=== PATIENT | male | born 1975 | race Hispanic/Latino ===

== ENCOUNTER 2024-07-26 22:51 | Emergency (ER) | payer SELFPAY ==
[~2024-07-26] VITALS: Ht 182.9 cm; Wt 99.8 kg
[2024-07-26 23:24] LABS: APPEARANCE,URINE CLEAR (CLEAR); BILIRUBIN,URINE NEGATIVE (NEGATIVE); COLOR,URINE YELLOW (YELLOW); GLUCOSE, URINE (UA) NEGATIVE (NEGATIVE); KETONES,URINE 5 mg/dL (NEGATIVE); LEUKOCYTE ESTERASE ,URINE NEGATIVE Leu/uL (NEGATIVE); NITRATE,URINE NEGATIVE (NEGATIVE); OCCULT BLOOD,URINE LARGE (NEGATIVE); PH,URINE 5.5 (5.0-8.0); PROTEIN,URINE 20 mg/dL (NEGATIVE); UROBILINOGEN,URINE 0.2 mg/dL (0.2-1.0)
[2024-07-26 23:30] LABS: ADD UA MICROSCOPIC YES
--- NOTE | 2024-07-26 23:32 | ERN ---
ED Note History of Present Illness Stated Complaint: C/O, ABD PAIN RADIATING TO LOWER BACK ONSET TUESDAY Chief Complaint: Abdominal Pain Time Seen by MD: 22:54 Time Seen by Midlevel: 22:54 Dictation: The patient is a 48-year-old male with a history of appendicitis who presents to the emergency department with complaints of left upper abdominal pain associated with nausea nonbloody vomiting onset Tuesday. Patient reports some constipation. Last bowel movement was on Tuesday. Denies any diarrhea, fevers. Reports pain radiates to the back. Patient also reports a pain radiating to testicles. Denies any swelling,discharge hematuria or urinary discomfort. Allergies: Coded Allergies: No Known Allergies (Unverified Allergy, Unknown, 07/26/24) Home Meds Active Scripts Lactulose (Lactulose) 10 Gram/15 Ml Solution, 30 ML PO DAILY for constipation, #900 ML 0 Refills Prov:ANDRES UNDERWOOD [facility] 07/27/24 Levofloxacin (Levaquin 750Mg Tabs) 750 Mg Tablet, 750 MG PO DAILY for 7 Days, #7 TAB 0 Refills Prov:ANDRES UNDERWOOD [facility] 07/27/24 Metronidazole (Metronidazole) 500 Mg Tablet, 1 TAB PO TID for 7 Days, #30 TAB 0 Refills Prov:ANDRES UNDERWOOD [facility] 07/27/24 Tamsulosin HCl (Flomax) 0.4 Mg Cap.er.24h, 0.4 MG PO DAILY, #30 CAPSULE. Prov:ANDRES UNDERWOOD [facility] 07/27/24 Past Medical History Past Medical History: No Pertinent History Surgical History: Appendectomy RN Note Reviewed/Agreed w/PFSH: Yes Review of System Dictation Constitutional: Negative for fever,chills, and weight loss Eyes: Negative for injury, pain,redness, and discharge ENT: Negative for injury,pain or swelling Cardiovascular: Negative for chest pain, palpitations, and edema Respiratory: Negative for shortness of breath, cough, and wheezing, Abdomen/GI: Negative for , diarrhea, positive for abdominal pain, nausea, vomiting, constipation Back: Negative for injury and pain : Negative for injury, bleeding and discharge. Positive for testicular pain MS/Extremity: Negative for injury and deformity Skin: Negative for rash, and discoloration Neuro: Negative for headache, weakness, numbness, tingling, and seizure Psych: Negative for suicide ideation, homicidal ideation, and hallucinations Initial Vital Sign VS Vital Signs Date Time Temp Pulse Resp B/P (MAP) Pulse Ox O2 Delivery O2 Flow Rate FiO2 07/26/24 22:54 100.6 83 20 162/85 97 Room Air 07/26/24 23:33 0 21 Physical Exam Dictation Vital Signs reviewed General Appearance: Alert, oriented x 3, no acute distress, well developed, nourished. Head and Face: non-traumatic. Eyes: PERRL, pink conjunctivas, eyelid no trauma, anterior chamber with arcus senilis. Ears: Pinnas intact and no signs of trauma or erythema ear canals clear and no discharge TM no erythema Nose: No discharge, no bleeding. Oropharynx: Mouth normal, tongue pink. pharynx clear,no erythema, tonsils no exudates, no abscesses noted, mucous membrane moist Neck: Supple, non-tender, no thyromegaly, no masses, no JVD, no bruits Breast:Deferred Chest:No tenderness, no crepitus, no paradoxical movement, no retractions Lungs:Clear, well-ventilated, symmetric, no rales, no wheezing, no rhonchi, no stridor, good breath sounds bilaterally Heart: Regular rate, regular rhythm, no murmur, no gallops Vascular: no peripheral edema, Abdomen: Firm, positive bowel sounds, nondistended, no guarding, Tender to left upper quadrant, no rebound, no masses no hepatomegaly, no splenomegaly, no Vila's sign, no hernias. Rectal: Deferred Genital: Deferred. Refused assessment Neurological: Normal speech, motor function intact, sensory function intact Musculoskeletal: Neck nontender, full range of motion, back nontender, full range of motion, Extremities: nontender, full range of motion Skin: Color pink, dry, no turgor, no rash, no lacerations, no abrasions, no contusions. Lymphatic: Deferred Results (Laboratory/Radiology) Laboratory/Radiology Laboratory Tests Test 07/26/24 23:01 07/26/24 23:31 Urine Color YELLOW (YELLOW) Urine Appearance CLEAR (CLEAR) Urine pH 5.5 (5.0-8.0) Urine Specific [place] 1.027 (1.001-1.031) Urine Protein 20 mg/dL (NEGATIVE) H Urine Glucose (UA) NEGATIVE mg/dL (NEGATIVE) Urine Ketones 5 mg/dL (NEGATIVE) H Urine Occult Blood LARGE (NEGATIVE) H Urine Nitrate NEGATIVE (NEGATIVE) Urine Bilirubin NEGATIVE mg/dL (NEGATIVE) Urine Urobilinogen 0.2 mg/dL (0.2-1.0) Urine Leukocyte Esterase NEGATIVE Eveline/uL Urine RBC 11-25 /HPF (0-1) H Urine WBC 0-1 /HPF (0-1) Urine Squamous Epithelial Cells RARE /HPF (0-2) Urine Bacteria None /HPF (None Seen) White Blood Count 13.1 K/uL (4.8-10.8) H Red Blood Count 5.40 MIL/uL (4.50-6.20) Hemoglobin 15.8 g/dL (14.0-18.0) Hematocrit 46.8 % (42-54) Mean Corpuscular Volume 86.7 fL (79-99) Mean Corpuscular Hemoglobin 29.3 pg (27.0-33.0) Mean Corpuscular Hemoglobin Concent 33.8 g/dL (32.0-36.0) Red Cell Distribution Width 12.5 % (11.0-15.5) Platelet Count 235 K/uL (130-400) Mean Platelet Volume 10.8 fL (7.5-10.5) H Immature Granulocyte % (Auto) 0.3 % (0-1) Neutrophils (%) (Auto) 74.3 % (40.0-77.0) Lymphocytes (%) (Auto) 13.8 % (21.0-51.0) L Monocytes (%) (Auto) 10.6 % (3.0-13.0) Eosinophils (%) (Auto) 0.8 % (0.0-8.0) Basophils (%) (Auto) 0.2 % (0.0-5.0) Neutrophils # (Auto) 9.7 K/uL (1.8-7.7) H Lymphocytes # (Auto) 1.8 K/uL (1.0-4.8) Monocytes # (Auto) 1.4 K/uL (0.1-1.0) H Eosinophils # (Auto) 0.10 K/uL (0.00-0.70) Basophils # (Auto) 0.03 K/uL (0.00-0.20) Absolute Immature Granulocyte (auto 0.04 K/uL (0-1) Nucleated Red Blood Cells 0.0 % (0.0-0.19) Sodium Level 137 mmol/L (136-145) Potassium Level 4.2 mmol/L (3.5-5.1) Chloride Level 96 mmol/L (101-111) L Carbon Dioxide Level 32 mmol/L (21-32) Blood Urea Nitrogen 21 mg/dL (7-18) H Creatinine 1.8 mg/dL (0.5-1.3) H Glomerular Filtration Rate Calc 46 mL/min (>90) Random Glucose 110 mg/dL (70-105) H Total Calcium 9.6 mg/dL (8.5-10.1) Total Bilirubin 0.8 mg/dL (0.2-1.0) Direct Bilirubin 0.2 mg/dL (0.0-0.3) Aspartate Amino Transf (AST/SGOT) 55 U/L (10-37) H Alanine Aminotransferase (ALT/SGPT) 74 U/L (12-78) Alkaline Phosphatase 125 U/L (50-136) Total Protein 8.4 g/dL (6.0-8.3) H Albumin 3.9 g/dL (3.5-5.0) Lipase 23 U/L (16-77) REASON: ABD PAIN ORDERING PHYSICIAN: ANDRES UNDERWOOD [employer] OPERATOR PROCEDURE: ABD PEL WO - CT ABDOMEN/PELVIS W/O CONTRAST CT ABDOMEN/PELVIS W/O CONTRAST HISTORY: Left-sided abdominal pain COMPARISON: None TECHNIQUE: Multiple sequential axial images of the abdomen and pelvis were obtained from the dome of the diaphragm through symphysis pubis. Patient was not given contrast through intravenous route. Oral contrast was not given. FINDINGS: No pleural effusion is seen bilaterally. There are interstitial fibrosis. There is no evidence of parenchymal disease or pulmonary nodule of the visualized lower lungs. Degenerative changes of the thoracolumbar spine are present. The heart is not enlarged. Liver is enlarged with fatty changes measuring 18.4 cm. Gallbladder is contracted. The liver, spleen, adrenal glands and pancreas are unremarkable. No hydronephrosis is seen on the right. There is mild left hydronephrosis and left hydroureter with 2 mm and 3 mm renal stones in the left UV junction. Tiny left renal pelvic stones are also seen. Fecal material is seen in the colon. There are normal size retroperitoneal and mesenteric lymph nodes. No ascites is seen. Appendix is not well seen limiting evaluation. Pelvic sidewalls are symmetric bilaterally. Bladder is well distended without wall thickening. IMPRESSION: 1. There is mild left hydronephrosis and left hydroureter with 2 mm and 3 mm renal stones in the left UV junction. Tiny left renal pelvic stones are also seen. Labs Reviewed?: Yes ED Course ED Course Orders Procedure Category Date Status Time Urinalysis Profile LAB 07/26/24 Complete 23:10 Cbc With Differential LAB 07/26/24 Complete 23:16 0.9%Nacl 1000ml (Ns PHA 07/26/24 Complete 1000ml) 23:30 Morphine 4mg Syg PHA 07/26/24 Complete (Morphine 4mg Syg) 23:30 Ondansetron 4mg Inj PHA 07/26/24 Complete (Zofran 4mg Inj) 23:30 Pantoprazole 40mg Inj PHA 07/26/24 Complete (Protonix 40mg Inj 23:30 Lipase LAB 07/26/24 Complete 23:16 Basic Metabolic Panel LAB 07/26/24 Complete 23:16 Hepatic Function Panel LAB 07/26/24 Complete 23:16 Ct Abdomen/Pelvis W/O CT 07/27/24 Resulted Contrast 00:04 Levofloxacin 750 PHA 07/27/24 In Process Mg/D5w 150 Ml 01:30 Metronidazole PHA 07/27/24 In Process 500mg/100ml Bag 01:20 0.9%Nacl 1000ml (Ns PHA 07/27/24 Complete 1000ml) 01:30 Hydralazine 20mg Inj PHA 07/27/24 Complete (Apresoline 20mg In 01:30 *Nursing CPOE 07/27/24 Transmitted Communication: 01:20 Tamsulosin Hcl PHA 07/27/24 Complete (Flomax) 02:00 Current Medications Medications (Trade) Dose Ordered Sig/Lise Route PRN Reason Start Time Stop Time Status Last Admin Dose Admin Hydralazine HCl (APRESOLine 20MG INJ) 10 mg ONCE ONCE IV 07/27/24 01:30 07/27/24 01:31 DC Levofloxacin/ Dextrose 150 ml @ 100 mls/hr ONCE ONCE IV 07/27/24 01:30 07/27/24 02:59 Metronidazole/ Sodium Chloride 100 ml @ 100 mls/hr Q1H STAT IVPB 07/27/24 01:20 07/27/24 02:19 07/27/24 01:33 Morphine Sulfate (morPHINE 4MG SYG) 4 mg ONCE ONCE IVP 07/26/24 23:30 07/26/24 23:31 DC 07/27/24 00:36 Ondansetron HCl (zoFRAN 4MG INJ) 4 mg ONCE ONCE IVP 07/26/24 23:30 07/26/24 23:31 DC 07/26/24 23:53 Pantoprazole Sodium (PROTonix 40MG INJ) 40 mg ONCE ONCE IVP 07/26/24 23:30 07/26/24 23:31 DC 07/26/24 23:53 Sodium Chloride 1,000 ml @ 0 mls/hr ONCE ONCE IV 07/26/24 23:30 07/26/24 23:31 DC 07/26/24 23:54 Sodium Chloride 1,000 ml @ 0 mls/hr ONCE ONCE IV 07/27/24 01:30 07/27/24 01:31 DC 07/27/24 01:34 Tamsulosin HCl (FloMAX) 0.4 mg ONCE ONCE PO 07/27/24 02:00 07/27/24 02:01 DC Vital Signs Date Time Temp Pulse Resp B/P (MAP) Pulse Ox O2 Delivery O2 Flow Rate FiO2 07/26/24 23:33 99.0 79 18 146/75 97 Room Air* 0 21 07/26/24 22:54 100.6 83 20 162/85 97 Room Air Medical Decision Making MDM The patient is a 48-year-old male with a history of appendicitis who presents to the emergency department with complaints of left upper abdominal pain associated with nausea nonbloody vomiting onset Tuesday. Patient reports some constipation. Last bowel movement was on Tuesday. Denies any diarrhea, fevers. Reports pain radiates to the back. Patient also reports a pain radiating to testicles. Denies any swelling, discharge, hematuria or urinary discomfort. CBC showed mild leukocytosis, no anemia, chemistry showed hypochloremia, elevated BUN and creatinine, GFR of 46, negative lipase, mild elevated AST, urinalysis with large occult blood. CT abdomen and pelvis showed mild left hydronephrosis and left hydroureter with 2 mm and 3 mm renal stones in the left UV junction. Patient reported scrotal pain but refused assessment by myself or Dr. Nina Patient also refused ultrasound of scrotum. Risks and benefits discussed with the patient. Patient tolerated PO challenge with no vomiting. Agrees to be discharge and follow up with pcp. Differential diagnosis: Constipation, bowel obstruction, kidney stones, gastroenteritis, electrolyte imbalance, dehydration Need for hospitalization: Patient does not meet criteria for hospitalization. There are no social concerns with this patient. DX & DISP Disposition: Discharge Departure Impression: Primary Impression: Kidney stone on left side Additional Impressions: Hydronephrosis of left kidney, Gastroenteritis, Leukocytosis, AMBER (acute kidney injury) Condition: Stable Scripts Lactulose (Lactulose) 10 Gram/15 Ml Solution 30 ML PO DAILY for constipation, #900 ML 0 Refills Prov: [facility]ES [facility] 07/27/24 Levofloxacin (Levaquin 750Mg Tabs) 750 Mg Tablet 750 MG PO DAILY for 7 Days, #7 TAB 0 Refills Prov: ANDRES UNDERWOOD [facility] 07/27/24 Metronidazole (Metronidazole) 500 Mg Tablet 1 TAB PO TID for 7 Days, #30 TAB 0 Refills Prov: ANDRES UNDERWOOD [facility] 07/27/24 Tamsulosin HCl (Flomax) 0.4 Mg Cap.er.24h 0.4 MG PO DAILY, #30 CAPSULE. Prov: ANDRES UNDERWOOD [facility] 07/27/24 Additional Instructions: Please follow up with the primary doctor in 1-2 days. You have an acute kidney injury that needs to be evaluated to make sure it is improving. You also need to be referred for urologist for a kidney stones. Please continue medications as prescribed. If symptoms worsen please return to ER. FOLLOW-UP WITH PRIMARY CARE PROVIDER IN 1 TO 2 DAYS. TAKE MEDICATIONS DIRECTED HERE IN THE EMERGENCY ROOM. OKAY TO CONTINUE HOME MEDICATIONS UNLESS OTHERWISE DISCUSSED DURING YOUR VISIT IN THE EMERGENCY ROOM TODAY. RETURN TO YOUR NEAREST EMERGENCY ROOM IF SYMPTOMS WORSEN OR IF THERE IS NO IMPROVEMENT. CALL 911 IF YOU NEED IMMEDIATE ASSISTANCE. TAKE TYLENOL OR MOTRIN [id number] NEEDED AND IF NO CONTRAINDICATIONS ARE PRESENT. INCREASE ORAL HYDRATION. A WOUND CULTURE OR URINE CULTURE WAS ORDERED HERE IN THE EMERGENCY ROOM DEPARTMENT PLEASE FOLLOW-UP WITH PRIMARY CARE PROVIDER AND ADVISE THEM TO GET REPEAT PORTS FROM OUR FACILITY. IF YOU HAD ANY ERI WRAP/SPLINTS THAT WERE APPLIED HERE, PLEASE DO NOT REMOVE THEM UNTIL YOU SEE YOUR PRIMARY CARE OR SPECIALTY. Referrals: SELF,REFERRAL (PCP) GILSON SCHULTZ MD Time of Disposition: 02:09 I have examined patient, & reviewed all documents, & agreed W/ the Diagnosis, and Plan ANDRES UNDERWOOD [employer] OPERATOR Jul 26, 2024 23:32
[2024-07-26 23:33] VITALS: TEMP 98.9
[2024-07-26 23:36] LABS: MUCUS,URINE RARE LPF (None Seen); SQUAMOUS EPITHELIAL CELL,UR RARE /HPF (0-2); WBC,URINE 0-1 /HPF (0-1)
[2024-07-26 23:42] LABS: BASOPHILS # (AUTO) 0.03 K/uL (0.00-0.20); BASOPHILS % (AUTO) 0.2 % (0.0-5.0); EOSINOPHILS % (AUTO) 0.8 % (0.0-8.0); HEMATOCRIT 46.8 % (42-54); IMMATURE GRANULOCYTE ABSOLUTE 0.04 K/uL (0-1); LYMPHOCYTES # (AUTO) 1.8 K/uL (1.0-4.8); LYMPHOCYTES % (AUTO) 13.8 % (21.0-51.0); MEAN CORPUSCULAR HEMOGLOBIN 29.3 pg (27.0-33.0); MEAN CORPUSCULAR HGB CONC 33.8 g/dL (32.0-36.0); MEAN CORPUSCULAR VOLUME 86.7 fL (79-99); MONOCYTES # (AUTO) 1.4 K/uL (0.1-1.0); MONOCYTES % (AUTO) 10.6 % (3.0-13.0); NEUTROPHILS # (AUTO) 9.7 K/uL (1.8-7.7); NEUTROPHILS % (AUTO) 74.3 % (40.0-77.0); PLATELET COUNT (AUTO) 235 K/uL (130-400); RED CELL DISTRIBUTION WIDTH 12.5 % (11.0-15.5); WHITE BLOOD COUNT (AUTO) 13.1 K/uL (4.8-10.8)
[2024-07-26] MEDS: ondanSETRON 4MG INJ IVP ONE (23:53)
[2024-07-26] MEDS: PANTOPrazole 40 MG/VIAL IVP ONE (23:53)
[2024-07-26] MEDS: 0.9%NACL 1000ML 1,000 ML IV ONE (23:54)
[2024-07-26 23:57] LABS: CREATININE 1.8 mg/dL (0.5-1.3); POTASSIUM 4.2 mmol/L (3.5-5.1)
[2024-07-27 00:02] LABS: ALBUMIN 3.9 g/dL (3.5-5.0); BILIRUBIN,DIRECT 0.2 mg/dL (0.0-0.3); BILIRUBIN,TOTAL 0.8 mg/dL (0.2-1.0); TOTAL PROTEIN, SERUM 8.4 g/dL (6.0-8.3)
[2024-07-27] MEDS: morPHINE 4 MG SYG IVP ONE (00:36)
--- NOTE | 2024-07-27 00:38 | NUR ---
PT REFUSED TESTICULAR ULTRASOUND. TIE LAYER AWARE
--- NOTE | 2024-07-27 00:52 | HMCIMG ---
CT ABDOMEN/PELVIS W/O CONTRAST HISTORY: Left-sided abdominal pain COMPARISON: None TECHNIQUE: Multiple sequential axial images of the abdomen and pelvis were obtained from the dome of the diaphragm through symphysis pubis. Patient was not given contrast through intravenous route. Oral contrast was not given. FINDINGS: No pleural effusion is seen bilaterally. There are interstitial fibrosis. There is no evidence of parenchymal disease or pulmonary nodule of the visualized lower lungs. Degenerative changes of the thoracolumbar spine are present. The heart is not enlarged. Liver is enlarged with fatty changes measuring 18.4 cm. Gallbladder is contracted. The liver, spleen, adrenal glands and pancreas are unremarkable. No hydronephrosis is seen on the right. There is mild left hydronephrosis and left hydroureter with 2 mm and 3 mm renal stones in the left UV junction. Tiny left renal pelvic stones are also seen. Fecal material is seen in the colon. There are normal size retroperitoneal and mesenteric lymph nodes. No ascites is seen. Appendix is not well seen limiting evaluation. Pelvic sidewalls are symmetric bilaterally. Bladder is well distended without wall thickening. IMPRESSION: 1. There is mild left hydronephrosis and left hydroureter with 2 mm and 3 mm renal stones in the left UV junction. Tiny left renal pelvic stones are also seen. CT was performed with one or more following dose reduction techniques: automated exposure control, adjustment of the mA and kv according to patient's size, or use of a iterative reconstruction technique.
[2024-07-27] MEDS: hydrALAZine 20MG/ML VIAL IV ONE (01:30)
[2024-07-27] MEDS: metRONIDazole 500MG/100ML BAG 100 ML IVPB STA (01:33)
[2024-07-27] MEDS: 0.9%NACL 1000ML 1,000 ML IV ONE (01:34)
[2024-07-27] MEDS ORDERED: LACT-441 PO (02:15)
[2024-07-27] MEDS ORDERED: METR-172 PO (02:15)
[2024-07-27] MEDS ORDERED: TAMS-1 PO (02:15)
[2024-07-27] MEDS ORDERED: LEVO750T68 PO (02:15)
[2024-07-27] MEDS: tamSULOsin HCL 0.4 MG CAP.ER.24H PO ONE (02:23)
[2024-07-27] MEDS: levoFLOXacin 750 MG/D5W 150 ML 150 ML IV ONE (03:18)
[2024-07-27 05:08] VITALS: BP 141/75; PULSE 76; RESP 18; O2SAT 97
== END 2024-07-27 05:19 | disposition home or self-care (01) ==
LOC: EDH 22:51
DX: N13.2 Hydronephrosis with renal and ureteral calculous obstruction (principal); K52.9 Noninfective gastroenteritis and colitis, unspecified; N17.9 Acute kidney failure, unspecified; D72.829 Elevated white blood cell count, unspecified; Z90.49 Acquired absence of other specified parts of digestive tract
CPT/HCPCS: 99285; 96375 ×2; 96361; 80076; 80048; 83690; 85025; 81001; 36415; 74176; 96365; 96366; 96368; J7030 ×2; J2405; J2470; J1956; J2270; J3490